=== PATIENT | male | born 2000 | race Caucasian/White ===

== ENCOUNTER → 2018-03-15 13:01 | Outpatient (CLI) | payer OTHER, MEDICAID, SELFPAY ==
--- NOTE | 2018-03-15 13:04 | DI.RAD.S_ITS ---
PROCEDURE: XR TIBIA FUBULA RT 2V INDICATIONS: maria pain/pressure TECHNIQUE: 2 views of the tibia and fibula were acquired. COMPARISON: None. FINDINGS: Bones: No fractures or dislocations. No suspicious bony lesions. Soft tissues: No suspicious soft tissue calcifications or masses. IMPRESSION: No acute fractures or dislocations. Dictated by: Nolan Roman M.D. on 03/15/2018 at 14:33 Approved by: Nolan Roman M.D. on 03/15/2018 at 14:33
--- NOTE | 2018-03-15 13:04 | DI.RAD.S_ITS ---
PROCEDURE: XR TIBIA FIBULA RT 2V INDICATIONS: maria pain/pressure TECHNIQUE: 2 views of the tibia and fibula were acquired. COMPARISON: None. FINDINGS: Bones: No fractures or dislocations. No suspicious bony lesions. Soft tissues: No suspicious soft tissue calcifications or masses. IMPRESSION: No acute fractures or dislocations. Dictated by: Nolan Roman M.D. on 03/15/2018 at 14:33 Approved by: Nolan Roman M.D. on 03/15/2018 at 14:33
== END ==
PROVIDERS: Visit Provider Physician Assistant
DX: M79.604 Pain in right leg (principal); M79.605 Pain in left leg
CPT/HCPCS: 73590